=== PATIENT | female | born 1995 | race African-American/Black ===

== ENCOUNTER 2020-12-24 12:09 | Inpatient (IN) | payer MEDICAID ==
[2020-12-24] MEDS ORDERED: Dexamethasone 10 MG/ML VIAL ONE (13:06)
[2020-12-24 13:32] LABS: #Lymphocytes 0.8 thou/uL (1.20-3.40); #Monocytes 0.3 thou/uL (0.11-0.59); #Neutrophils 9.5 thou/uL (1.40-6.50); %Basophils 0.2 % (0.0-1.0); %Lymphocytes 7.2 % (21.0-51.0); %Monocytes 2.4 % (0.0-10.0); %Neutrophils 90.2 % (42.0-75.0); Hemoglobin 11.9 g/dL (12.0-16.0); Mean Corpuscular HGB CONC 32.2 g/dL (32.0-36.0); Mean Corpuscular Hemoglobin 25.7 pg (27.0-31.0); Mean Corpuscular Volume 79.9 fL (78.0-98.0); Mean Platelet Volume 9.2 fL (7.4-10.4); Platelet Count 228 thou/uL (130-400); RBC Distribution Width 12.4 % (11.5-14.5); Red Blood Cell (RBC) Count 4.62 mill/uL (4.20-5.40); White Blood Cell (WBC) Count 10.6 thou/uL (4.8-10.8)
[2020-12-24 13:50] LABS: ALT (SGPT) 13 U/L (8-55); AST (SGOT) 14 U/L (5-34); Albumin 3.7 g/dL (3.5-5.0); Alkaline Phosphatase 100 U/L (40-110); Anion Gap 18 mmol/L (10-20); BUN (Urea Nitrogen) 8 mg/dL (7.0-18.7); Bilirubin, Total 0.7 mg/dL (0.2-1.2); Calc. Creatinine Clearance 0 mL/min (70-130); Carbon Dioxide 20 mmol/L (22-29); Chloride 101 mmol/L (98-107); Globulin 3.8 g/dL (2.4-3.5); Glucose 274 mg/dL (70-105); Potassium 4.2 mmol/L (3.5-5.1); Protein, Total 7.5 g/dL (6.0-8.3); Sodium 135 mmol/L (136-145)
[2020-12-24] MEDS ORDERED: Dextrose 50% Abboject 50 ML SYRINGE SLOW IVP PRN (14:10)
[2020-12-24] MEDS ORDERED: Dextrose 5% in Water 1,000 ML IV PRN (14:10)
[2020-12-24] MEDS ORDERED: Lantus 1000 UNITS/10 ML VIAL SC SCH ×2 (14:45→21:00)
[2020-12-24] MEDS ORDERED: Piperacillin/Tazobactam 3.375 GM in Sodium Chloride 0.9% 100 ML IVPB SCH ×2 (14:45→18:00)
[2020-12-24] MEDS ORDERED: Piperacillin/Tazobactam 3.375 GM VIAL ONE (15:31)
[2020-12-24] MEDS ORDERED: Morphine 2 MG/ML VIAL ONE (15:31)
[2020-12-24 15:46] LABS: BHCG - Serum Negative (NEGATIVE); Pregs Control Background? CLEAR/WHITE (CLR/WHITE); Pregs Control Bar Appear? YES (CONTROL BAR)
[2020-12-24] MEDS: Sodium Chloride 0.9% 1,000 ML IV SCH (15:55)
[2020-12-24] MEDS: Morphine 2 MG/ML VIAL SLOW IVP PRN (15:56)
[2020-12-24] MEDS ORDERED: Vancomycin HCl 1.5 GM in Sodium Chloride 0.9% 250 ML 300 ML IVPB SCH (16:00)
[2020-12-24] MEDS ORDERED: Lidocaine 2% Jelly 5 ML TUBE ONE ×2 (17:25→17:41)
[2020-12-24] MEDS ORDERED: Midazolam HCl 2 mg/2 ml Vial ONE (17:25)
[2020-12-24] MEDS ORDERED: AFRIN NASAL MIST 15 ML BOT ONE (17:25)
[2020-12-24] MEDS ORDERED: Fentanyl 250 MCG/5 ML VIAL ONE (17:25)
[2020-12-24] MEDS ORDERED: Insulin Regular 300 UNITS/3 ML VIAL ONE (17:28)
[2020-12-24] MEDS ORDERED: Lidocaine 1% w/Epinephrine 1:100K 20 ML VIAL ONE (17:30)
[2020-12-24] MEDS ORDERED: Chlorhexidine Gluconate 15 ML UDCUP SSP ONE (17:30)
[2020-12-24] MEDS ORDERED: Bacitracin Zinc Ointment 30 gm TUBE ONE (17:30)
[2020-12-24] MEDS ORDERED: Ondansetron PF 4 MG/2 ML Vial ONE (18:06)
[2020-12-24] MEDS ORDERED: Succinylcholine 200 MG/10 ml SYRINGE FS ONE (18:06)
[2020-12-24] MEDS ORDERED: Rocuronium Bromide 10 MG/ML (10ML VIAL) ONE (18:06)
[2020-12-24] MEDS ORDERED: PROPOFOL 200 MG/20 ML VIAL ONE (18:06)
[2020-12-24] MEDS ORDERED: Glycopyrrolate 0.2 MG/ML 5 ML SYRINGE ONE (18:06)
[2020-12-24] MEDS ORDERED: Lidocaine 1% PF 5 ML VIAL ONE (18:06)
[2020-12-24] MEDS ORDERED: Esmolol 100 MG/10 ML VIAL ONE (18:06)
[2020-12-24] MEDS ORDERED: Neomycin-Polymyxin 1 ML AMP ONE (18:29)
[2020-12-24] MEDS ORDERED: Promethazine HCl 25 MG/ML VIAL IM PRN (19:21)
[2020-12-24] MEDS ORDERED: Ondansetron HCl/PF 4 MG/2 ML Vial IVP PRN (19:21)
[2020-12-24] MEDS ORDERED: Promethazine HCl 25 MG/ML VIAL IVPB PRN (19:21)
[2020-12-24] MEDS ORDERED: Fentanyl 100 MCG/2 ML VIAL ONE ×2 (19:24→20:02)
[2020-12-24] MEDS: Chlorhexidine Gluconate 15 ML UDCUP SSP SCH ×3 (21:00→21:28)
[2020-12-24] MEDS ORDERED: Famotidine 20 MG TAB PO SCH (21:00)
[2020-12-24] MEDS: Morphine 4 MG/ML VIAL SLOW IVP PRN (21:25)
[2020-12-24] MEDS: Piperacillin/Tazobactam 3.375 GM in Sodium Chloride 0.9% 100 ML IVPB SCH (21:28)
[2020-12-24] MEDS: Famotidine/PF 20 mg/2ml Vial SLOW IVP SCH (21:28)
[2020-12-24 21:44] VITALS: BMI 30.2
[2020-12-24] MEDS: HumaLOG 300 UNITS/3 ML VIAL SC PRN (21:45)
[2020-12-25] MEDS: Morphine 4 MG/ML VIAL SLOW IVP PRN ×2 (01:41→06:32)
[2020-12-25] MEDS: Sodium Chloride 0.9% 1,000 ML IV SCH ×3 (03:12→21:42)
[2020-12-25 04:11] LABS: #Lymphocytes 1.1 thou/uL (1.20-3.40); #Monocytes 0.9 thou/uL (0.11-0.59); #Neutrophils 9.9 thou/uL (1.40-6.50); %Basophils 0.1 % (0.0-1.0); %Eosinophils 0.1 % (0.0-10.0); %Lymphocytes 8.9 % (21.0-51.0); %Monocytes 7.6 % (0.0-10.0); %Neutrophils 83.3 % (42.0-75.0); Hemoglobin 11.1 g/dL (12.0-16.0); Mean Corpuscular HGB CONC 31.3 g/dL (32.0-36.0); Mean Corpuscular Hemoglobin 25.3 pg (27.0-31.0); Mean Corpuscular Volume 80.6 fL (78.0-98.0); Mean Platelet Volume 9.9 fL (7.4-10.4); Platelet Count 225 thou/uL (130-400); RBC Distribution Width 12.5 % (11.5-14.5); Red Blood Cell (RBC) Count 4.38 mill/uL (4.20-5.40); White Blood Cell (WBC) Count 11.8 thou/uL (4.8-10.8)
[2020-12-25 04:41] LABS: ALT (SGPT) 16 U/L (8-55); AST (SGOT) 19 U/L (5-34); Albumin 3.5 g/dL (3.5-5.0); Alkaline Phosphatase 119 U/L (40-110); Anion Gap 15 mmol/L (10-20); BUN (Urea Nitrogen) 9 mg/dL (7.0-18.7); Calc. Creatinine Clearance 144 mL/min (70-130); Calcium 8.9 mg/dL (7.8-10.44); Carbon Dioxide 20 mmol/L (22-29); Chloride 103 mmol/L (98-107); Globulin 3.6 g/dL (2.4-3.5); Glucose 205 mg/dL (70-105); Protein, Total 7.1 g/dL (6.0-8.3); Sodium 134 mmol/L (136-145)
[2020-12-25] MEDS: Vancomycin HCl 1.25 GM in Sodium Chloride 0.9% 250 ML 250 ML IVPB SCH ×2 (05:08→18:43)
[2020-12-25] MEDS ORDERED: Morphine 4 MG/ML VIAL ONE (06:24)
[2020-12-25] MEDS: Piperacillin/Tazobactam 3.375 GM in Sodium Chloride 0.9% 100 ML IVPB SCH ×3 (07:31→21:31)
[2020-12-25] MEDS: HumaLOG 300 UNITS/3 ML VIAL SC PRN ×3 (07:32→18:23)
[2020-12-25] MEDS: Chlorhexidine Gluconate 15 ML UDCUP SSP SCH ×2 (08:15→21:29)
[2020-12-25] MEDS: Famotidine/PF 20 mg/2ml Vial SLOW IVP SCH ×2 (08:15→21:42)
[2020-12-25] MEDS ORDERED: Chloraseptic Spray 180 ml Bottle PO PRN (08:19)
[2020-12-25] MEDS ORDERED: Ketorolac Tromethamine 30 MG/ML VIAL ONE (08:50)
[2020-12-25] MEDS ORDERED: Sodium Chloride 0.9% 10 ML ONE (08:50)
[2020-12-25] MEDS: Ketorolac Tromethamine 30 MG/ML VIAL IVP PRN (08:55)
[2020-12-25] MEDS ORDERED: Lantus 1000 UNITS/10 ML VIAL SC SCH (09:00)
[2020-12-25] MEDS: Lantus 1000 UNITS/10 ML VIAL SC SCH (12:17)
[2020-12-25] MEDS: Morphine 2 MG/ML VIAL SLOW IVP PRN ×2 (17:48→21:52)
[2020-12-25] MEDS ORDERED: Piperacillin/Tazobactam 3.375 GM VIAL ONE (21:37)
[2020-12-26 04:58] LABS: #Lymphocytes 1.6 thou/uL (1.20-3.40); #Monocytes 0.8 thou/uL (0.11-0.59); %Basophils 0.1 % (0.0-1.0); %Eosinophils 0.1 % (0.0-10.0); %Lymphocytes 15.5 % (21.0-51.0); %Monocytes 7.4 % (0.0-10.0); %Neutrophils 76.9 % (42.0-75.0); Hemoglobin 10.8 g/dL (12.0-16.0); Mean Corpuscular HGB CONC 31.7 g/dL (32.0-36.0); Mean Corpuscular Hemoglobin 25.8 pg (27.0-31.0); Mean Corpuscular Volume 81.4 fL (78.0-98.0); Mean Platelet Volume 9.3 fL (7.4-10.4); Platelet Count 236 thou/uL (130-400); RBC Distribution Width 12.6 % (11.5-14.5); White Blood Cell (WBC) Count 10.3 thou/uL (4.8-10.8)
[2020-12-26 05:18] LABS: Vancomycin, Trough 4.9 ug/mL
[2020-12-26 05:20] LABS: Anion Gap 15 mmol/L (10-20); BUN (Urea Nitrogen) 11 mg/dL (7.0-18.7); Calc. Creatinine Clearance 148 mL/min (70-130); Calcium 8.4 mg/dL (7.8-10.44); Carbon Dioxide 20 mmol/L (22-29); Chloride 105 mmol/L (98-107); Glucose 203 mg/dL (70-105); Potassium 3.6 mmol/L (3.5-5.1); Sodium 136 mmol/L (136-145)
[2020-12-26] MEDS: Piperacillin/Tazobactam 3.375 GM in Sodium Chloride 0.9% 100 ML IVPB SCH ×3 (05:32→22:59)
[2020-12-26] MEDS: Vancomycin 1 GM in Premix Bag 1 BAG IVPB SCH ×3 (06:16→20:55)
[2020-12-26] MEDS: Chlorhexidine Gluconate 15 ML UDCUP SSP SCH ×2 (08:17→20:54)
[2020-12-26] MEDS: Morphine 2 MG/ML VIAL SLOW IVP PRN ×2 (08:18→13:25)
[2020-12-26] MEDS: Sodium Chloride 0.9% 1,000 ML IV SCH (08:18)
[2020-12-26] MEDS: Famotidine/PF 20 mg/2ml Vial SLOW IVP SCH ×2 (08:19→20:55)
[2020-12-26] MEDS: Lantus 1000 UNITS/10 ML VIAL SC SCH (08:32)
[2020-12-26] MEDS: HumaLOG 300 UNITS/3 ML VIAL SC PRN ×4 (08:32→22:58)
[2020-12-26] MEDS: Ketorolac Tromethamine 30 MG/ML VIAL IVP PRN ×2 (18:00)
[2020-12-26] MEDS: Morphine 4 MG/ML VIAL SLOW IVP PRN (20:55)
[2020-12-27] MEDS: Morphine 2 MG/ML VIAL SLOW IVP PRN ×2 (05:12→20:53)
[2020-12-27] MEDS: Vancomycin 1 GM in Premix Bag 1 BAG IVPB SCH ×2 (05:12→15:21)
[2020-12-27] MEDS: Ketorolac Tromethamine 30 MG/ML VIAL IVP PRN ×3 (05:13→17:09)
[2020-12-27] MEDS: Sodium Chloride 0.9% 1,000 ML IV SCH ×2 (05:24→12:45)
[2020-12-27 06:08] LABS: #Lymphocytes 1.8 thou/uL (1.20-3.40); #Monocytes 0.7 thou/uL (0.11-0.59); #Neutrophils 4.4 thou/uL (1.40-6.50); %Basophils 0.4 % (0.0-1.0); %Eosinophils 0.5 % (0.0-10.0); %Lymphocytes 25.8 % (21.0-51.0); %Monocytes 9.5 % (0.0-10.0); %Neutrophils 63.8 % (42.0-75.0); Hemoglobin 9.3 g/dL (12.0-16.0); Mean Corpuscular HGB CONC 29.3 g/dL (32.0-36.0); Mean Corpuscular Hemoglobin 23.7 pg (27.0-31.0); Mean Platelet Volume 8.5 fL (7.4-10.4); Platelet Count 256 thou/uL (130-400); RBC Distribution Width 12.7 % (11.5-14.5); Red Blood Cell (RBC) Count 3.94 mill/uL (4.20-5.40); White Blood Cell (WBC) Count 6.9 thou/uL (4.8-10.8)
[2020-12-27 06:21] LABS: Anion Gap 12 mmol/L (10-20); BUN (Urea Nitrogen) 6 mg/dL (7.0-18.7); Calc. Creatinine Clearance 167 mL/min (70-130); Calcium 8.2 mg/dL (7.8-10.44); Carbon Dioxide 24 mmol/L (22-29); Chloride 103 mmol/L (98-107); Glucose 194 mg/dL (70-105); Potassium 3.2 mmol/L (3.5-5.1); Sodium 136 mmol/L (136-145)
[2020-12-27] MEDS: Piperacillin/Tazobactam 3.375 GM in Sodium Chloride 0.9% 100 ML IVPB SCH ×2 (06:36→17:10)
[2020-12-27] MEDS: HumaLOG 300 UNITS/3 ML VIAL SC PRN ×4 (06:36→21:05)
[2020-12-27] MEDS: Vancomycin HCl 1.25 GM in Sodium Chloride 0.9% 250 ML 250 ML IVPB SCH (08:32)
[2020-12-27] MEDS: Chlorhexidine Gluconate 15 ML UDCUP SSP SCH ×2 (09:44→20:36)
[2020-12-27] MEDS: Lantus 1000 UNITS/10 ML VIAL SC SCH (09:44)
[2020-12-27] MEDS: Famotidine/PF 20 mg/2ml Vial SLOW IVP SCH ×2 (09:45→20:35)
[2020-12-27] MEDS: Potassium Chloride 20 MEQ in Premix Bag 1 BAG IVPB SCH ×2 (11:12→20:18)
[2020-12-27] MEDS ORDERED: Potassium Chloride 20 MEQ TAB PO SCH (19:45)
[2020-12-27] MEDS: Vancomycin HCl 1.75 GM in Sodium Chloride 0.9% 500 ML IVPB SCH (22:19)
[2020-12-28] MEDS: Ketorolac Tromethamine 30 MG/ML VIAL IVP PRN ×4 (00:26→21:50)
[2020-12-28] MEDS: Sodium Chloride 0.9% 1,000 ML IV SCH ×3 (00:33→18:02)
[2020-12-28] MEDS: Piperacillin/Tazobactam 3.375 GM in Sodium Chloride 0.9% 100 ML IVPB SCH ×4 (02:28→17:55)
[2020-12-28 06:00] LABS: #Eosinphils 0.1 thou/uL (0.0-0.7); #Monocytes 0.5 thou/uL (0.11-0.59); #Neutrophils 3.2 thou/uL (1.40-6.50); %Basophils 0.4 % (0.0-1.0); %Eosinophils 1.2 % (0.0-10.0); %Lymphocytes 34.3 % (21.0-51.0); %Monocytes 9.1 % (0.0-10.0); %Neutrophils 55.1 % (42.0-75.0); Hemoglobin 9.4 g/dL (12.0-16.0); Mean Corpuscular HGB CONC 32.1 g/dL (32.0-36.0); Mean Corpuscular Hemoglobin 26.1 pg (27.0-31.0); Mean Corpuscular Volume 81.3 fL (78.0-98.0); Mean Platelet Volume 8.5 fL (7.4-10.4); Platelet Count 279 thou/uL (130-400); RBC Distribution Width 12.6 % (11.5-14.5); Red Blood Cell (RBC) Count 3.61 mill/uL (4.20-5.40); White Blood Cell (WBC) Count 5.9 thou/uL (4.8-10.8)
[2020-12-28] MEDS: HumaLOG 300 UNITS/3 ML VIAL SC PRN ×4 (06:08→21:50)
[2020-12-28] MEDS: Vancomycin HCl 1.75 GM in Sodium Chloride 0.9% 500 ML IVPB SCH ×2 (06:13→15:03)
[2020-12-28 06:23] LABS: Anion Gap 11 mmol/L (10-20); BUN (Urea Nitrogen) 6 mg/dL (7.0-18.7); Calc. Creatinine Clearance 137 mL/min (70-130); Calcium 8.2 mg/dL (7.8-10.44); Carbon Dioxide 25 mmol/L (22-29); Chloride 106 mmol/L (98-107); Glucose 179 mg/dL (70-105); Potassium 3.9 mmol/L (3.5-5.1); Sodium 138 mmol/L (136-145)
[2020-12-28] MEDS: Famotidine/PF 20 mg/2ml Vial SLOW IVP SCH ×2 (09:19→21:50)
[2020-12-28] MEDS: Chlorhexidine Gluconate 15 ML UDCUP SSP SCH ×2 (09:19→21:52)
[2020-12-28] MEDS: Lantus 1000 UNITS/10 ML VIAL SC SCH ×2 (09:19→21:49)
[2020-12-28 13:40] LABS: Vancomycin, Trough 23.9 ug/mL
[2020-12-28] MEDS: Vancomycin HCl 1.25 GM in Sodium Chloride 0.9% 250 ML 250 ML IVPB SCH ×2 (15:42→21:51)
[2020-12-28] MEDS: Morphine 2 MG/ML VIAL SLOW IVP PRN (15:46)
[2020-12-28] MEDS ORDERED: Ondansetron PF 4 MG/2 ML Vial IVP PRN (22:10)
[2020-12-29] MEDS: Piperacillin/Tazobactam 3.375 GM in Sodium Chloride 0.9% 100 ML IVPB SCH ×3 (03:00→18:20)
[2020-12-29] MEDS: Vancomycin HCl 1.25 GM in Sodium Chloride 0.9% 250 ML 250 ML IVPB SCH ×2 (05:17→15:27)
[2020-12-29 05:49] LABS: #Lymphocytes 1.5 thou/uL (1.20-3.40); #Monocytes 0.7 thou/uL (0.11-0.59); %Basophils 0.2 % (0.0-1.0); %Eosinophils 0.7 % (0.0-10.0); %Lymphocytes 23.5 % (21.0-51.0); %Monocytes 11.2 % (0.0-10.0); %Neutrophils 64.4 % (42.0-75.0); Hemoglobin 8.8 g/dL (12.0-16.0); Mean Corpuscular HGB CONC 32.1 g/dL (32.0-36.0); Mean Corpuscular Hemoglobin 25.9 pg (27.0-31.0); Mean Corpuscular Volume 80.7 fL (78.0-98.0); Mean Platelet Volume 8.3 fL (7.4-10.4); Platelet Count 282 thou/uL (130-400); Red Blood Cell (RBC) Count 3.39 mill/uL (4.20-5.40); White Blood Cell (WBC) Count 6.3 thou/uL (4.8-10.8)
[2020-12-29] MEDS: Sodium Chloride 0.9% 1,000 ML IV SCH ×3 (05:55→18:20)
[2020-12-29 06:04] LABS: Anion Gap 9 mmol/L (10-20); BUN (Urea Nitrogen) 6 mg/dL (7.0-18.7); Calc. Creatinine Clearance 91 mL/min (70-130); Calcium 8.4 mg/dL (7.8-10.44); Carbon Dioxide 26 mmol/L (22-29); Chloride 108 mmol/L (98-107); Glucose 161 mg/dL (70-105); Magnesium 1.5 mg/dL (1.6-2.6); Potassium 3.6 mmol/L (3.5-5.1); Sodium 139 mmol/L (136-145)
[2020-12-29] MEDS: HumaLOG 300 UNITS/3 ML VIAL SC PRN ×2 (06:38→11:54)
[2020-12-29] MEDS ORDERED: Magnesium Sulfate 3 GM in Sodium Chloride 0.9% 100 ML IVPB SCH (08:15)
[2020-12-29] MEDS: Famotidine/PF 20 mg/2ml Vial SLOW IVP SCH ×2 (11:30→20:10)
[2020-12-29] MEDS: Chlorhexidine Gluconate 15 ML UDCUP SSP SCH ×2 (11:31→20:10)
[2020-12-29] MEDS: Lantus 1000 UNITS/10 ML VIAL SC SCH ×2 (11:49→20:56)
[2020-12-29] MEDS ORDERED: Piperacillin/Tazobactam 3.375 GM VIAL ONE (11:55)
[2020-12-29] MEDS: Morphine 2 MG/ML VIAL SLOW IVP PRN (13:13)
[2020-12-29] MEDS ORDERED: Iopamidol-370 76% 500 ML 1 ML ONE (13:34)
[2020-12-29 13:53] LABS: Vancomycin, Trough 36.9 ug/mL
[2020-12-29] MEDS ORDERED: Vancomycin HCl 1.25 GM in Sodium Chloride 0.9% 250 ML 250 ML IVPB SCH (15:00)
[2020-12-29] MEDS ORDERED: Neomycin-Polymyxin 1 ML AMP ONE (20:30)
[2020-12-29] MEDS ORDERED: Chlorhexidine Gluconate 15 ML UDCUP SSP ONE (20:30)
[2020-12-29] MEDS ORDERED: Lidocaine 1% w/Epinephrine 1:100K 30 ML VIAL ONE (20:30)
[2020-12-29] MEDS ORDERED: Ophthalmic Irrigation Solution 0 ML ONE (20:30)
[2020-12-29] MEDS ORDERED: Bacitracin Zinc Ointment 30 gm TUBE ONE (20:30)
[2020-12-29] MEDS ORDERED: Fentanyl 100 MCG/2 ML VIAL ONE ×4 (20:43→23:06)
[2020-12-29] MEDS ORDERED: Midazolam HCl 2 mg/2 ml Vial ONE (20:43)
[2020-12-29] MEDS ORDERED: Lidocaine 2% Jelly 5 ML TUBE ONE (21:19)
[2020-12-29] MEDS ORDERED: Lidocaine 1% PF 5 ML VIAL ONE (21:22)
[2020-12-29] MEDS ORDERED: Ondansetron PF 4 MG/2 ML Vial ONE (21:22)
[2020-12-29] MEDS ORDERED: Ketorolac Tromethamine 30 MG/ML VIAL ONE (21:22)
[2020-12-29] MEDS ORDERED: Succinylcholine 200 MG/10 ml SYRINGE FS ONE (21:22)
[2020-12-29] MEDS ORDERED: PROPOFOL 200 MG/20 ML VIAL ONE (21:22)
[2020-12-29] MEDS ORDERED: Promethazine HCl 25 MG/ML VIAL IVPB PRN (22:43)
[2020-12-29] MEDS ORDERED: Promethazine HCl 25 MG/ML VIAL IM PRN (22:43)
[2020-12-29] MEDS ORDERED: Ondansetron HCl/PF 4 MG/2 ML Vial IVP PRN (22:43)
[2020-12-29] MEDS ORDERED: Metoprolol Tartrate 5 MG/5 ML VIAL ONE (23:32)
[2020-12-30] MEDS: Morphine 4 MG/ML VIAL SLOW IVP PRN ×3 (00:12→17:37)
[2020-12-30] MEDS: Piperacillin/Tazobactam 3.375 GM in Sodium Chloride 0.9% 100 ML IVPB SCH ×3 (02:00→18:32)
[2020-12-30 05:33] LABS: #Lymphocytes 1.2 thou/uL (1.20-3.40); #Monocytes 0.8 thou/uL (0.11-0.59); #Neutrophils 6.5 thou/uL (1.40-6.50); %Basophils 0.2 % (0.0-1.0); %Eosinophils 0.4 % (0.0-10.0); %Lymphocytes 13.8 % (21.0-51.0); %Monocytes 9.3 % (0.0-10.0); %Neutrophils 76.3 % (42.0-75.0); Hemoglobin 8.7 g/dL (12.0-16.0); Mean Corpuscular HGB CONC 32.2 g/dL (32.0-36.0); Mean Corpuscular Hemoglobin 26.2 pg (27.0-31.0); Mean Corpuscular Volume 81.4 fL (78.0-98.0); Mean Platelet Volume 8.3 fL (7.4-10.4); Platelet Count 279 thou/uL (130-400); RBC Distribution Width 13.7 % (11.5-14.5); Red Blood Cell (RBC) Count 3.32 mill/uL (4.20-5.40); White Blood Cell (WBC) Count 8.5 thou/uL (4.8-10.8)
[2020-12-30] MEDS: Morphine 2 MG/ML VIAL SLOW IVP PRN (05:49)
[2020-12-30 05:59] LABS: Vancomycin, Random 17.5 ug/mL (See Comment)
[2020-12-30 06:04] LABS: Anion Gap 15 mmol/L (10-20); BUN (Urea Nitrogen) 7 mg/dL (7.0-18.7); Calc. Creatinine Clearance 82 mL/min (70-130); Calcium 8.5 mg/dL (7.8-10.44); Carbon Dioxide 23 mmol/L (22-29); Chloride 102 mmol/L (98-107); Glucose 149 mg/dL (70-105); Potassium 3.6 mmol/L (3.5-5.1); Sodium 136 mmol/L (136-145)
[2020-12-30] MEDS ORDERED: Vancomycin HCl 750 MG in Sodium Chloride 0.9% 250 ML 250 ML IVPB SCH (08:00)
[2020-12-30] MEDS: Famotidine/PF 20 mg/2ml Vial SLOW IVP SCH ×2 (09:52→20:11)
[2020-12-30] MEDS: Chlorhexidine Gluconate 15 ML UDCUP SSP SCH ×2 (09:53→20:11)
[2020-12-30] MEDS: Lantus 1000 UNITS/10 ML VIAL SC SCH ×2 (09:53→21:13)
[2020-12-30] MEDS: Sodium Chloride 0.9% 1,000 ML IV SCH ×2 (09:55→18:32)
[2020-12-30] MEDS: HumaLOG 300 UNITS/3 ML VIAL SC PRN ×2 (12:26→17:38)
[2020-12-30] MEDS ORDERED: Sodium Chloride 0.9% 500 ML IV SCH (17:00)
[2020-12-31] MEDS: Morphine 4 MG/ML VIAL SLOW IVP PRN ×2 (01:01→17:31)
[2020-12-31] MEDS: Piperacillin/Tazobactam 3.375 GM in Sodium Chloride 0.9% 100 ML IVPB SCH ×3 (01:02→17:31)
[2020-12-31] MEDS: Sodium Chloride 0.9% 1,000 ML IV SCH ×5 (01:07→21:21)
[2020-12-31 06:39] LABS: #Lymphocytes 1.2 thou/uL (1.20-3.40); #Monocytes 0.5 thou/uL (0.11-0.59); #Neutrophils 4.1 thou/uL (1.40-6.50); %Basophils 0.5 % (0.0-1.0); %Eosinophils 0.6 % (0.0-10.0); %Lymphocytes 20.4 % (21.0-51.0); %Monocytes 8.2 % (0.0-10.0); %Neutrophils 70.3 % (42.0-75.0); Hemoglobin 7.8 g/dL (12.0-16.0); Mean Corpuscular HGB CONC 32.8 g/dL (32.0-36.0); Mean Corpuscular Hemoglobin 26.8 pg (27.0-31.0); Mean Corpuscular Volume 81.7 fL (78.0-98.0); Mean Platelet Volume 8.6 fL (7.4-10.4); Platelet Count 254 thou/uL (130-400); RBC Distribution Width 13.8 % (11.5-14.5); Red Blood Cell (RBC) Count 2.91 mill/uL (4.20-5.40); White Blood Cell (WBC) Count 5.9 thou/uL (4.8-10.8)
[2020-12-31 07:05] LABS: ALT (SGPT) 32 U/L (8-55); AST (SGOT) 38 U/L (5-34); Albumin 2.9 g/dL (3.5-5.0); Alkaline Phosphatase 208 U/L (40-110); Anion Gap 8 mmol/L (10-20); BUN (Urea Nitrogen) 6 mg/dL (7.0-18.7); Bilirubin, Total 1.3 mg/dL (0.2-1.2); Calc. Creatinine Clearance 86 mL/min (70-130); Calcium 8.3 mg/dL (7.8-10.44); Carbon Dioxide 25 mmol/L (22-29); Chloride 107 mmol/L (98-107); Globulin 3.5 g/dL (2.4-3.5); Glucose 115 mg/dL (70-105); Potassium 3.3 mmol/L (3.5-5.1); Protein, Total 6.4 g/dL (6.0-8.3); Sodium 137 mmol/L (136-145)
[2020-12-31] MEDS: Chlorhexidine Gluconate 15 ML UDCUP SSP SCH ×2 (09:20→21:24)
[2020-12-31] MEDS: Famotidine/PF 20 mg/2ml Vial SLOW IVP SCH ×2 (09:20→21:26)
[2020-12-31] MEDS: Lantus 1000 UNITS/10 ML VIAL SC SCH ×2 (09:45→21:25)
[2020-12-31] MEDS: HumaLOG 300 UNITS/3 ML VIAL SC PRN (17:32)
[2020-12-31 19:10] LABS: Vancomycin, Trough 4.3 ug/mL
[2021-01-01] MEDS: Piperacillin/Tazobactam 3.375 GM in Sodium Chloride 0.9% 100 ML IVPB SCH ×3 (01:38→17:39)
[2021-01-01 07:52] LABS: #Eosinphils 0.1 thou/uL (0.0-0.7); #Lymphocytes 1.1 thou/uL (1.20-3.40); #Monocytes 0.5 thou/uL (0.11-0.59); %Basophils 0.7 % (0.0-1.0); %Eosinophils 1.2 % (0.0-10.0); %Lymphocytes 23.5 % (21.0-51.0); %Monocytes 10.2 % (0.0-10.0); %Neutrophils 64.3 % (42.0-75.0); Hemoglobin 7.7 g/dL (12.0-16.0); Mean Corpuscular HGB CONC 31.6 g/dL (32.0-36.0); Mean Corpuscular Hemoglobin 25.9 pg (27.0-31.0); Mean Corpuscular Volume 81.9 fL (78.0-98.0); Mean Platelet Volume 8.2 fL (7.4-10.4); Platelet Count 256 thou/uL (130-400); RBC Distribution Width 14.1 % (11.5-14.5); Red Blood Cell (RBC) Count 2.97 mill/uL (4.20-5.40); White Blood Cell (WBC) Count 4.7 thou/uL (4.8-10.8)
[2021-01-01 08:07] LABS: Anion Gap 9 mmol/L (10-20); BUN (Urea Nitrogen) 5 mg/dL (7.0-18.7); Calc. Creatinine Clearance 87 mL/min (70-130); Calcium 8.3 mg/dL (7.8-10.44); Carbon Dioxide 24 mmol/L (22-29); Chloride 108 mmol/L (98-107); Glucose 146 mg/dL (70-105); Potassium 3.3 mmol/L (3.5-5.1); Sodium 138 mmol/L (136-145)
[2021-01-01] MEDS: Chlorhexidine Gluconate 15 ML UDCUP SSP SCH ×2 (09:25→20:44)
[2021-01-01] MEDS: Lantus 1000 UNITS/10 ML VIAL SC SCH ×2 (09:25→20:45)
[2021-01-01] MEDS: Morphine 4 MG/ML VIAL SLOW IVP PRN ×2 (09:26→17:39)
[2021-01-01] MEDS: HumaLOG 300 UNITS/3 ML VIAL SC PRN ×2 (11:55→17:39)
[2021-01-01] MEDS: Potassium Chloride 20 MEQ TAB PO SCH ×2 (14:33→18:15)
[2021-01-01] MEDS: Docusate 100 MG CAP PO SCH (20:44)
[2021-01-01] MEDS: Polyethylene Glycol 3350 17 GM Packet PO SCH (20:45)
[2021-01-02] MEDS: Piperacillin/Tazobactam 3.375 GM in Sodium Chloride 0.9% 100 ML IVPB SCH ×3 (02:58→17:41)
[2021-01-02] MEDS: Morphine 4 MG/ML VIAL SLOW IVP PRN (03:00)
[2021-01-02] MEDS: Chlorhexidine Gluconate 15 ML UDCUP SSP SCH ×2 (10:23→21:28)
[2021-01-02] MEDS: Docusate 100 MG CAP PO SCH ×3 (10:23→21:29)
[2021-01-02] MEDS: Lantus 1000 UNITS/10 ML VIAL SC SCH ×2 (10:23→21:28)
[2021-01-02] MEDS: Acetaminophen 325 MG TAB PO PRN (14:57)
[2021-01-02] MEDS: Bacitracin 1 PK TOP SCH ×2 (15:30→21:28)
[2021-01-02] MEDS: Polyethylene Glycol 3350 17 GM Packet PO SCH ×2 (21:27→21:30)
[2021-01-03] MEDS: Piperacillin/Tazobactam 3.375 GM in Sodium Chloride 0.9% 100 ML IVPB SCH ×2 (03:07→10:15)
[2021-01-03] MEDS: Lantus 1000 UNITS/10 ML VIAL SC SCH (08:24)
[2021-01-03] MEDS: Docusate 100 MG CAP PO SCH (08:25)
[2021-01-03] MEDS: Chlorhexidine Gluconate 15 ML UDCUP SSP SCH (08:25)
[2021-01-03] MEDS: Bacitracin 1 PK TOP SCH (08:25)
[2021-01-03] MEDS: Acetaminophen 325 MG TAB PO PRN (08:40)
[2021-01-03 11:32] VITALS: BP 128/80; TEMP 98.1
== END 2021-01-03 12:04 | disposition home or self-care (01) | DRG 580 ==
LOC: ERS 12:09 → ERHOLD 13:57 → SURG A 17:10 → CCU 20:47 → PACU-TCU 12-25 06:28 → SURG A 12-25 10:03
PROVIDERS: ADMIT Family Medicine; ATTEND Internal Medicine
PROC: 0J910ZZ Drainage of Face Subcutaneous Tissue and Fascia, Open Approach (ICD-10-PCS; principal; 2020-12-24)
PROC: 0J950ZZ Drainage of Left Neck Subcutaneous Tissue and Fascia, Open Approach (ICD-10-PCS; 2020-12-24)
DX: L02.01 Cutaneous abscess of face (principal); K12.2 Cellulitis and abscess of mouth; E87.1 Hypo-osmolality and hyponatremia; N17.9 Acute kidney failure, unspecified; E10.65 Type 1 diabetes mellitus with hyperglycemia; E87.6 Hypokalemia; Z82.49 Family history of ischemic heart disease and other diseases of the circulatory system; Z79.4 Long term (current) use of insulin; Z80.3 Family history of malignant neoplasm of breast
CPT/HCPCS: 36415; 36416; 70491; 80048; 80053; 80202; 83735; 84703; 85025; 87070; 87077; 87205; 96374; J1100; J1815; J1885; J2250; J2270; J2405; J2543; J2704; J3010; J3370; J3475; J3480; J3490; J7030; J7050; Q9967; S0028